=== PATIENT | female | born 1995 | race Two or more races ===

== ENCOUNTER 2022-12-02 10:33 | Emergency (ER) | payer OTHER, MEDICAID ==
[~2022-12-02] VITALS: Ht 157.5 cm; Wt 78.8 kg
[2022-12-02 12:04] VITALS: BP 131/83; PULSE 85; RESP 20; TEMP 97.9; O2SAT 98
[2022-12-02] MEDS ORDERED: IBUP1TAB5 PO (16:10)
[2022-12-02] MEDS ORDERED: BACL10TA PO (16:10)
[2022-12-02] MEDS ORDERED: HYDROcodone-ACET 5/325MG TAB PO ONE (16:15)
== END 2022-12-02 16:15 | disposition home or self-care (01) ==
LOC: ER 10:33
DX: S13.9XXA Sprain of joints and ligaments of unspecified parts of neck, initial encounter (principal); S23.3XXA Sprain of ligaments of thoracic spine, initial encounter; S00.83XA Contusion of other part of head, initial encounter; V89.2XXA Person injured in unspecified motor-vehicle accident, traffic, initial encounter; Y93.89 Activity, other specified; Y92.89 Other specified places as the place of occurrence of the external cause; Y99.8 Other external cause status
CPT/HCPCS: 70450; 71250; 72125